=== PATIENT | male | born 1955 | race Two or more races ===

== ENCOUNTER 2017-12-06 19:37 | Inpatient (IN) | payer MEDICAID, OTHER ==
[~2017-12-06] VITALS: Ht 175.3 cm; Wt 95.7 kg
[2017-12-06] MEDS ORDERED: KETOROLAC TROMETHAMINE INJ 30 MG/ML VIAL IV ONE (20:00)
[2017-12-06] MEDS ORDERED: ASPIRIN 81 MG TAB.CHEW ONE (20:00)
[2017-12-06] MEDS ORDERED: KETOROLAC TROMETHAMINE 15 MG/ML VIAL ONE (20:00)
[2017-12-06] MEDS ORDERED: ASPIRIN 81 MG TAB.CHEW PO ONE (20:00)
[2017-12-06] MEDS ORDERED: IV NS 0.9% 500 ML BAG IV ONE (20:00)
--- NOTE | 2017-12-06 20:00 | NUR ---
BIB [facility] C/O CHEST PAIN SINCE LAST NIGHT. AA/OX4. "I WAS ABOUT TO GO TO BED WHEN IT BEGAN." O2 SAT ROOM AIR 93%. PT PLACED ON 4LPM VIA NC. SITTING UPRIGHT SPEAKING FULL SENTENCES. LT SIDED CHEST PAIN, NON-RADIATING. 8/10 PAIN, PRESSURE TYPE PAIN. DENIES N/V/D. SKIN PINK, WARM, DRY. MOVES ALL EXTREMITIES WELL. WILL CONTINUE TO MONITOR.
[2017-12-06 20:14] LABS: BASOPHILS % (AUTO) 0.4 % (0.0-2.0); EOSINOPHILS % (AUTO) 6.7 % (0.0-6.0); HEMATOCRIT 35 % (39-51); HEMOGLOBIN 12.2 g/dL (13.5-17.5); LYMPHOCYTES # (AUTO) 2.1 /CMM (0.8-4.8); LYMPHOCYTES % (AUTO) 31.4 % (20.0-44.0); MEAN CORPUSCULAR HGB CONC 35 g/dl (31.0-36.0); MEAN CORPUSCULAR VOLUME 87 fL (80-96); MONOCYTES # (AUTO) 0.6 /CMM (0.1-1.30); MONOCYTES % (AUTO) 8.4 % (2.0-12.0); NEUTROPHILS # (AUTO) 3.6 /CMM (1.8-8.9); NEUTROPHILS % (AUTO) 53.1 % (43.0-81.0); PLATELET COUNT (AUTO) 289 /CMM (150-450); RDW COEFFICIENT OF VARIATION 11.9 (11.5-15.0); RED BLOOD CELL COUNT(AUTO) 4.04 MIL/uL (4.5-6.0); WHITE BLOOD COUNT (AUTO) 6.8 K/uL (4.3-11.0)
--- NOTE | 2017-12-06 20:27 | NUR ---
327-2 TELE Addendum: 12/06/[address] at [address] FIGUEROA
[2017-12-06 20:49] LABS: ALANINE AMINOTRANSFERASE 20 U/L (12-78); ALBUMIN 3.4 g/dL (3.4-5.0); ALKALINE PHOSPHATASE 84 U/L (46-116); ASPARTATE AMINOTRANSFERASE 12 U/L (15-37); BILIRUBIN,TOTAL 0.2 mg/dL (0.2-1.0); CALCIUM, SERUM 8.7 mg/dL (8.5-10.1); CARBON DIOXIDE 26 mmol/L (21-32); CHLORIDE 106 mmol/L (98-107); CREATININE 0.8 mg/dL (0.6-1.3); GLUCOSE 198 mg/dL (74-106); LIPASE 141 U/L (73-393); POTASSIUM 3.6 mmol/L (3.5-5.1); SODIUM SERUM 140 mmol/L (136-145); TOTAL PROTEIN, SERUM 6.6 g/dL (6.4-8.2); TROPONIN I < 0.017 ng/mL (0.00-0.056); UREA NITROGEN, BLOOD 11 mg/dL (7-18)
--- NOTE | 2017-12-06 21:08 | NUR ---
CALLED [employer] ASSISTANT DEAN WAS PAGED.
--- NOTE | 2017-12-06 21:22 | NUR ---
REPORT GIVEN TO TERRANCE HOLLAND.
--- NOTE | 2017-12-06 21:38 | NUR ---
PT TRANSPORTED TO TELE UNIT STABLE CONDITION. VSS. NAD. VIA ACLS PROTOCOL
--- NOTE | 2017-12-06 21:39 | NUR ---
RECEIVED PATIENT FROM ER FOR DX CHEST PAIN. PATIENT AO TO SELF AND SITUATION; FORGETFUL OF DATE AND PLACE. NO ACUTE DISTRESS NOTED. DENIES ANY PAIN AT THIS TIME. IV SITE PATENT, INTACT; FLUSHED. TELE READING SINUS RHYTHM HR 62. SKIN ASSESSMENT DONE. SAFETY REMINDERS GIVEN. ORIENTATION TO ROOM AND UNIT GIVEN TO PATIENT. ON LOW BED WITH BILATERAL UPPER SIDE RAILS UP. CALL LOVING WITHIN EASY REACH. WILL CONTINUE TO MONITOR.
[2017-12-06 21:40] VITALS: BP 146/72
[2017-12-06 22:00] VITALS: BP 146/72
[2017-12-06] MEDS ORDERED: IV NS 0.9% 1,000 ML IV PRN (22:31)
[2017-12-06] MEDS ORDERED: HYDROCODONE/APAP 5/325MG 1 EACH TABLET PO PRN (23:00)
[2017-12-06] MEDS ORDERED: MAGNESIUM HYDROXIDE 30 ML UDC PO PRN (23:00)
[2017-12-06] MEDS ORDERED: ONDANSETRON HCL/PF 4 MG/2 ML VIAL IVP PRN (23:00)
[2017-12-06] MEDS ORDERED: ACETAMINOPHEN 325 MG TABLET PO PRN (23:00)
[2017-12-06] MEDS ORDERED: ZOLPIDEM TARTRATE 5 MG TABLET PO PRN (23:00)
[2017-12-06] MEDS ORDERED: Z GUARD REMEDY 2 OZ OINT TP PRN (23:00)
[2017-12-06] MEDS ORDERED: MAG HYDROX/AL HYDROX/SIMETH 30 ML UDC PO PRN (23:00)
[2017-12-06] MEDS ORDERED: MORPHINE SULFATE INJ 2 MG/ML DISP.SYRIN IV PRN (23:00)
[2017-12-07] VITALS: BP 147/78
[2017-12-07] MEDS ORDERED: LOSA50TA3 PO (01:06)
[2017-12-07] MEDS ORDERED: OLAN15TA3 PO (01:06)
[2017-12-07] MEDS ORDERED: ASPI-1152 PO (01:06)
[2017-12-07] MEDS ORDERED: TEMA30CA5 PO (01:06)
[2017-12-07] MEDS ORDERED: TAMS-12 PO (01:06)
[2017-12-07] MEDS ORDERED: CARB-92 PO (01:06)
[2017-12-07] MEDS ORDERED: COGENTIN PO (01:06)
[2017-12-07] MEDS ORDERED: SIMV20TA2 PO (01:06)
[2017-12-07] MEDS ORDERED: CARV3.12 PO (01:06)
[2017-12-07] MEDS ORDERED: RISP3TAB5 PO (01:06)
[2017-12-07] MEDS ORDERED: CLON0.5T PO (01:06)
[2017-12-07 04:00] VITALS: BP 116/65
[2017-12-07 06:12] LABS: BASOPHILS % (AUTO) 0.3 % (0.0-2.0); EOSINOPHILS % (AUTO) 7.4 % (0.0-6.0); HEMATOCRIT 36 % (39-51); LYMPHOCYTES # (AUTO) 2.3 /CMM (0.8-4.8); LYMPHOCYTES % (AUTO) 33.3 % (20.0-44.0); MEAN CORPUSCULAR HGB CONC 33 g/dl (31.0-36.0); MEAN CORPUSCULAR VOLUME 88 fL (80-96); MONOCYTES # (AUTO) 0.5 /CMM (0.1-1.30); NEUTROPHILS # (AUTO) 3.5 /CMM (1.8-8.9); PLATELET COUNT (AUTO) 276 /CMM (150-450); RED BLOOD CELL COUNT(AUTO) 4.09 MIL/uL (4.5-6.0); WHITE BLOOD COUNT (AUTO) 6.9 K/uL (4.3-11.0)
[2017-12-07 06:22] LABS: THYROID STIMULATING HORMONE 5.199 uIU/mL (0.358-3.74)
[2017-12-07 06:25] LABS: CALCIUM, SERUM 7.9 mg/dL (8.5-10.1); CREATININE 0.7 mg/dL (0.6-1.3); MAGNESIUM 1.9 mg/dL (1.8-2.4); POTASSIUM 3.6 mmol/L (3.5-5.1)
--- NOTE | 2017-12-07 06:30 | NUR ---
PATIENT ASLEEP, EASILY AROUSABLE. RESPIRATIONS EVEN. NO SIGNS OF PAIN NOTED. IVF INFUSING ORDERED. NEEDS ATTENDED. KEPT CLEAN AND DRY. SAFETY PRECAUTIONS AND COMFORT MEASURES IN PLACE. WILL GIVE REPORT TO DAY SHIFT FOR CONTINUITY OF CARE.
--- NOTE | 2017-12-07 07:59 | NUR ---
TEAM MANAGER NOTES Patient in bed, awake. A/O x1, expressing he's hungry. Explained to patient he will have procedure today and he needs not to eat and drink until the procedure is done. NPO since midnight per night RN report. Sinus rhythm HR 66 in the Tele monitor, denies chest pain. Maintained safety. Will cont to monitor.
[2017-12-07 08:00] VITALS: BP 153/73
--- NOTE | 2017-12-07 08:31 | NUR ---
NM Myocardial stress test explained to patient with [place] aide wire spooler, patient consented procedure. Maintained NPO. Will cont to monitor.
[2017-12-07] MEDS ORDERED: REGADENOSON 0.4 MG/5 ML DISP.SYRIN IVP ONE (09:00)
[2017-12-07] MEDS ORDERED: ASPIRIN EC 81 MG TABLET.DR PO SCH (12:30)
[2017-12-07] MEDS ORDERED: TEMAZEPAM 15 MG CAPSULE PO PRN (12:30)
--- NOTE | 2017-12-07 13:21 | NUR ---
NM: CARDIAC STRESS TEST WAS COMPLETED. TECH:RB
[2017-12-07] MEDS: CARBIDOPA/LEVODOPA 10/100 MG 1 UDTAB PO SCH ×2 (13:53→17:09)
[2017-12-07 16:00] VITALS: BP 132/65
[2017-12-07] MEDS ORDERED: CARVEDILOL 3.125 MG TABLET PO SCH (17:00)
[2017-12-07] MEDS ORDERED: risperiDONE 1 MG TABLET PO SCH (17:00)
[2017-12-07] MEDS ORDERED: clonazePAM 0.5 MG TABLET PO SCH (17:00)
[2017-12-07] MEDS ORDERED: BENZTROPINE MESYLATE (1 MG) 1 MG TABLET PO SCH (17:00)
[2017-12-07 17:10] VITALS: BP 132/65
--- NOTE | 2017-12-07 18:47 | NUR ---
MS RN DISCHARGED Patient has been cleared for discharge by MD. VS remained stable, denies chest pain. Skin intact, ambulates with assist. Voided without difficulty, no stool today. Called [facility] living, spoke with Kay, discharge instruction packet send with the patient. Patient left hosp in stable condition via ambulance.
[2017-12-07] MEDS ORDERED: OLANZAPINE 10 MG TABLET PO SCH (22:00)
[2017-12-08] MEDS ORDERED: TAMSULOSIN 0.4 MG CAP.SR.24H PO SCH (09:00)
[2017-12-08] MEDS ORDERED: SIMVASTATIN 20 MG TABLET PO SCH (09:00)
[2017-12-08] MEDS ORDERED: LOSARTAN POTASSIUM 50 MG TABLET PO SCH (09:00)
== END 2017-12-07 18:50 | DRG 203 ==
LOC: ER 19:39 → TELE 20:36 → MED 12-07 08:35
PROVIDERS: ADMIT Internal Medicine; ATTEND Internal Medicine
DX: M94.0 Chondrocostal junction syndrome [Tietze] (principal); G20 Parkinson's disease; F20.9 Schizophrenia, unspecified; E78.5 Hyperlipidemia, unspecified; K21.9 Gastro-esophageal reflux disease without esophagitis; I10 Essential (primary) hypertension; D64.9 Anemia, unspecified; N40.0 Benign prostatic hyperplasia without lower urinary tract symptoms
CPT/HCPCS: 36415; 71045-TC; 80048-TC; 80061-TC; 80076-TC; 83540-TC; 83690-TC; 83735-TC; 84100-TC; 84443-TC; 84484-TC; 85025-TC; 87081-TC; 93307-TC; A4606; A9502; J1885; J2785; J7030; J7040; Z7610